=== PATIENT | male | born 1960 | race Caucasian/White ===

== ENCOUNTER 2019-12-08 10:27 | Inpatient (IN) ==
[2019-12-08] MEDS ORDERED: 0.9 % SODIUM CHLORIDE 1,000 ML IV ONE ×2 (10:35→11:24)
[2019-12-08] MEDS ORDERED: ONDANSETRON 4 MG/2 ML VIAL IV ONE (10:35)
[2019-12-08 11:23] LABS: Basophils # (Auto) 0.07 K/mcL (0.00-0.30); Basophils % (Auto) 0.5 % (0.0-2.0); Eosinophils # (Auto) 0.02 K/mcL (0.00-0.70); Eosinophils % (Auto) 0.1 % (0.0-7.0); Granulocytes % (Auto) 68.1 % (38.0-78.0); Hematocrit 46.2 % (40.1-51.0); Hemoglobin 16.3 g/dL (13.7-17.5); Lymphocytes # (Auto) 2.49 K/mcL (1.50-4.80); Lymphocytes % (Auto) 17.4 % (15.5-49.0); Mean Cell Volume 87.5 fL (80.0-100.0); Mean Corpuscular HGB Conc 35.3 g/dL (31.0-36.0); Mean Platelet Volume 9.6 fL (7.4-10.4); Monocytes # (Auto) 1.98 K/mcL (0.10-0.90); Monocytes % (Auto) 13.9 % (1.0-12.0); Platelet Count 362 K/mcL (140-440); RBC 5.28 M/mcL (4.63-6.08); Red Cell Distribution Width 13.3 % (11.5-14.5); WBC 14.3 K/mcL (4.50-11.00)
[2019-12-08] MEDS ORDERED: DILTIAZEM 25 MG/5 ML VIAL IV ONE (11:35)
--- NOTE | 2019-12-08 11:36 | Emergency Department Note ---
Alcohol HPI - General Chief Complaint: Alcohol Stated Complaint: Nausea, alcohol Time Seen by Provider: 12/08/19 10:35 Source: patient Mode of arrival: wheelchair Limitations: no limitations - History of Present Illness HPI Narrative: This patient has had nausea vomiting for 2 weeks. He is a heavy drinker drinking 1/5 of alcohol a day. He says he has been sober in the past but started drinking again last July. He is interested in getting off alcohol again. He does have various aches and pains including shoulders chest and abdomen which he has had for several weeks. Some of the pain he says is had for couple of months. He is found to be in atrial fibrillation on his EKG and he says he is not aware of having that in the past. Last drink was last evening. - Related Data Home Medications Medication Instructions Recorded Confirmed Fenofibrate Nanocrystallized 145 mg PO QDAY 05/03/16 11/02/19 [Tricor] Folic Acid 1 mg PO QDAY 05/03/16 11/02/19 Insulin Glargine, Human [Lantus] 50 unit SQ BID 05/03/16 11/02/19 Simvastatin [Zocor] 10 mg PO HS 05/03/16 11/02/19 Tolterodine Tartrate [Detrol LA] 4 mg PO HS 05/03/16 11/02/19 metFORMIN [Glucophage] 1,000 mg PO BIDCC 05/03/16 11/02/19 Ipratropium 0.03% Nasal [place] 2 spray DAVE TIDP PRN 08/08/16 11/02/19 [Atrovent 0.03% Nasal [place]] Lisinopril [Zestril] 10 mg PO DAILY 08/08/16 11/02/19 Tamsulosin [Flomax] 0.4 mg PO DAILY 08/08/16 11/02/19 insulin aspart U-100 100 unit/mL 20 unit SUB-Q BID PRN ml 10/06/19 11/02/19 subcutaneous solution sertraline 25 mg tablet 25 mg PO QAM tab 10/06/19 11/02/19 sildenafil 100 mg tablet 100 mg PO ONCE tab 10/06/19 11/02/19 simvastatin 40 mg tablet 40 mg PO QDAY tab 10/06/19 11/02/19 canagliflozin 100 mg tablet 100 mg PO DAILY 10/07/19 11/02/19 Previous Rx's Medication Instructions Recorded levothyroxine 50 mcg tablet 50 mcg PO DAILY #30 tab 09/12/19 clobetasol 0.05 % topical ointment See Rx Instructions TOPICAL BID 09/15/19 #15 g blood sugar diagnostic See Rx Instructions .ROUTE 09/16/19 .MEDSUPPLY #100 each ergocalciferol (vitamin D2) 1,250 50,000 unit PO QWEEK #4 cap 09/29/19 mcg (50,000 unit) capsule apremilast 30 mg tablet 30 mg PO BID #60 tab 10/28/19 hydrocodone 10 mg-acetaminophen 1 tab PO Q6H PRN #120 tab 11/02/19 325 mg tablet lorazepam 1 mg tablet 1 mg PO .COMPLEX #56 tab 11/02/19 omeprazole 40 mg capsule,delayed 40 mg PO BID PRN #60 cap 11/02/19 release Allergies Allergy/AdvReac Type Severity Reaction Status Date / Time Bee Pollen Allergy Mild Swelling Verified 12/08/19 10:27 Loperamide [From Imodium A-D] AdvReac Mild Hives Verified 12/08/19 10:27 Review of Systems All systems ED: reviewed and negative except as stated. Past Medical History - Past Medical History PMF Narrative: Medical History (Last Reviewed 11/05/19 @ 17:48 by Pete Green MD) MRSA (methicillin resistant staph aureus) culture positive (Chronic) ETOH abuse (Chronic) GERD (gastroesophageal reflux disease) (Chronic) Cellulitis due to methicillin-resistant Staphylococcus aureus (MRSA) (Chronic) Hx of gastric ulcer (Chronic) Erectile dysfunction (Chronic) Hyperlipidemia (Chronic) Rectal bleeding (Chronic) Hypothyroidism (Chronic) Back pain (Chronic) Infection resistant to penicillin (Chronic) Fatigue (Chronic) Ganglion, unspecified (Chronic) Sleep apnea (Chronic) Disorders of diaphragm (Chronic) Hyponatremia (Chronic) Microalbuminuria (Chronic) Obesity (Chronic) Hypertriglyceridemia (Chronic) Vitamin D deficiency (Chronic) Barretts esophagus (Chronic) Diabetes mellitus type 2, uncontrolled (Chronic) Psoriasis (Chronic) Cellulitis of groin, left (Chronic) Encounter for long-term use of opiate analgesic (Chronic) Diabetes mellitus due to underlying condition with hyperglycemia (Chronic) Alcohol dependence with withdrawal, uncomplicated (Chronic) Hypertension (Chronic) Psoriatic arthritis (Chronic) Impingement syndrome of left shoulder (Chronic) Disorder of lung (Chronic) Encounter for long-term (current) use of insulin (Chronic) Abscess of flank (Chronic) Contusion of scalp, initial encounter (Chronic) Abrasion of scalp, initial encounter (Chronic) Cervical disc disease (Chronic) History of head injury (Chronic) Carpal tunnel syndrome of left wrist (Chronic) Past Surgical History (Last Reviewed 11/05/19 @ 17:48 by Pete Green MD) History of shoulder surgery (Chronic ~2019) History of esophagogastroduodenoscopy (EGD) (Chronic 06/25/17) History of colonoscopy (Chronic) Family History (Last Reviewed 11/05/19 @ 17:48 by Pete Green MD) Mother Aneurysm - Social History smoking status: Never smoker Physical Exam Limitations: no limitations General appearance: alert Head: atraumatic Eye: Present: normal appearance ENT: Present: normal exam Neck: Present: normal inspection Chest: Present: normal inspection Respiratory: Present: normal lung sounds bilaterally Cardiovascular: Present: regular rate, normal rhythm, normal heart sounds Abdominal: Present: soft, tenderness. Absent: distention Abdominal tenderness: Present: diffuse, mild Neurological: Present: alert Psychiatric: Present: normal affect Skin: Present: warm, dry Course Vital Signs Temperature 97.4 F 12/08/19 10:28 Pulse Rate 99 H 12/08/19 10:28 Respiratory Rate 18 12/08/19 10:28 Blood Pressure 115/76 12/08/19 10:28 Pulse Oximetry (%) 96 12/08/19 10:28 Temperature 97.4 F 12/08/19 10:28 Pulse Rate 99 H 12/08/19 14:16 Respiratory Rate 21 12/08/19 14:16 Blood Pressure 94/50 12/08/19 14:02 Pulse Oximetry (%) 94 12/08/19 14:16 Alcohol - MDM Narrative Medical decision making narrative: This patient has atrial fib RVR with initial heart rate 145 to come down about 100 with diltiazem. He has no alcohol in his system at this time and is feeling a little shaky and has had withdrawal symptoms in the past. He is interested in getting off alcohol again. He will be admitted to the hospital by Dr. Tena. - Lab Data Lab results reviewed: Yes I reviewed the patient's lab results. Result diagrams: 12/08/19 10:46 12/08/19 10:46 Lab Results 12/08/19 12/08/19 12/08/19 Range/Units 10:46 10:46 10:46 WBC 14.3 H (4.50-11.00) K/mcL RBC 5.28 (4.63-6.08) M/mcL Hgb 16.3 (13.7-17.5) g/dL Hct 46.2 (40.1-51.0) % MCV 87.5 (80.0-100.0) fL MCH 30.9 (26.0-34.0) pg MCHC 35.3 (31.0-36.0) g/dL RDW 13.3 (11.5-14.5) % Plt Count 362 (140-440) K/mcL MPV 9.6 (7.4-10.4) fL Gran % 68.1 (38.0-78.0) % Lymph % (Auto) 17.4 (15.5-49.0) % [place] % (Auto) 13.9 H (1.0-12.0) % Eos % (Auto) 0.1 (0.0-7.0) % Baso % (Auto) 0.5 (0.0-2.0) % Gran # 9.73 H (1.80-8.00) K/mcL Lymph # (Auto) 2.49 (1.50-4.80) K/mcL [place] # (Auto) 1.98 H (0.10-0.90) K/mcL Eos # (Auto) 0.02 (0.00-0.70) K/mcL Baso # (Auto) 0.07 (0.00-0.30) K/mcL Sodium 129 L (133-145) mmol/L Potassium 2.7 L* (3.3-5.1) mmol/L Chloride 79 L (96-108) mmol/L Carbon Dioxide 23 (22-30) mmol/L Anion Gap 27.0 H (8-16) BUN 11 (8-23) mg/dl Creatinine 0.9 (0.7-1.2) mg/dl GFR Calculation 92 Glucose 221 H (70-105) mg/dL Calcium 8.6 (8.6-10.4) mg/dl Total Bilirubin 1.6 H (0.0-1.0) mg/dL AST 36 (0-37) U/l ALT 20 (0-40) U/l Alkaline Phosphatase 101 (39-117) U/L Troponin T (0-0.03) ng/ml Total Protein 7.1 (5.9-8.4) gm/dL Albumin 4.4 (3.2-5.2) gm/dL Globulin 2.7 (2.2-3.7) gm/dL Albumin/Globulin Ratio 1.6 (1.0-2.3) Lipase 75 H (7-60) U/L Urine Color Urine Appearance Urine pH (5.0-9.0) Ur Specific [place] (1.000-1.035) Urine Protein (NEG) mg/dL Urine Glucose (UA) (NEG) mg/dL Urine Ketones (NEG) mg/dL Urine Occult Blood (<0.03) mg/dL Urine Nitrate (NEG) Urine Bilirubin (NEG) mg/dL Urine Urobilinogen (NEG) mg/dL Ur Leukocyte Esterase (NEG) /uL Urine RBC (0-1) /hpf Urine WBC (0-4) /hpf Ur Squamous Epith Cells (0-4) /hpf Ur Transition Epith Cell (0-2) /hpf Urine Bacteria (0) /hpf Ur Culture Indicated? Ethyl Alcohol < 0.010 (<0.010) gm/dl 12/08/19 12/08/19 Range/Units 10:46 12:33 WBC (4.50-11.00) K/mcL RBC (4.63-6.08) M/mcL Hgb (13.7-17.5) g/dL Hct (40.1-51.0) % MCV (80.0-100.0) fL MCH (26.0-34.0) pg MCHC (31.0-36.0) g/dL RDW (11.5-14.5) % Plt Count (140-440) K/mcL MPV (7.4-10.4) fL Gran % (38.0-78.0) % Lymph % (Auto) (15.5-49.0) % [place] % (Auto) (1.0-12.0) % Eos % (Auto) (0.0-7.0) % Baso % (Auto) (0.0-2.0) % Gran # (1.80-8.00) K/mcL Lymph # (Auto) (1.50-4.80) K/mcL [place] # (Auto) (0.10-0.90) K/mcL Eos # (Auto) (0.00-0.70) K/mcL Baso # (Auto) (0.00-0.30) K/mcL Sodium (133-145) mmol/L Potassium (3.3-5.1) mmol/L Chloride (96-108) mmol/L Carbon Dioxide (22-30) mmol/L Anion Gap (8-16) BUN (8-23) mg/dl Creatinine (0.7-1.2) mg/dl GFR Calculation Glucose (70-105) mg/dL Calcium (8.6-10.4) mg/dl Total Bilirubin (0.0-1.0) mg/dL AST (0-37) U/l ALT (0-40) U/l Alkaline Phosphatase (39-117) U/L Troponin T < 0.01 (0-0.03) ng/ml Total Protein (5.9-8.4) gm/dL Albumin (3.2-5.2) gm/dL Globulin (2.2-3.7) gm/dL Albumin/Globulin Ratio (1.0-2.3) Lipase (7-60) U/L Urine Color Yellow Urine Appearance Clear Urine pH 6.0 (5.0-9.0) Ur Specific [place] 1.029 (1.000-1.035) Urine Protein Neg (NEG) mg/dL Urine Glucose (UA) >=500 A (NEG) mg/dL Urine Ketones 20 A (NEG) mg/dL Urine Occult Blood Neg (<0.03) mg/dL Urine Nitrate Neg (NEG) Urine Bilirubin Neg (NEG) mg/dL Urine Urobilinogen Neg (NEG) mg/dL Ur Leukocyte Esterase Neg (NEG) /uL Urine RBC 1 (0-1) /hpf Urine WBC 0 (0-4) /hpf Ur Squamous Epith Cells 0 (0-4) /hpf Ur Transition Epith Cell < 1 (0-2) /hpf Urine Bacteria 0 (0) /hpf Ur Culture Indicated? No Ethyl Alcohol (<0.010) gm/dl Disposition Pt seen by [facility]/PA only: No Clinical Impression: Atrial fibrillation with RVR, Alcohol withdrawal syndrome Disposition: Xfer As Inpt ([facility]) Condition: Good Referrals: Pete Green MD [Primary Care Provider] - Time of Disposition: 14:43
[2019-12-08 11:40] LABS: Alcohol, Blood < 10.0 mg/dL (<10); Alcohol,Blood < 0.010 gm/dl (<0.010)
[2019-12-08] MEDS ORDERED: DILTIAZEM 125 MG in DEXTROSE 5% IN WATER 100 ML IV SCH (11:45)
[2019-12-08 11:46] LABS: ALT/SGPT 20 U/l (0-40); AST/SGOT 36 U/l (0-37); Albumin 4.4 gm/dL (3.2-5.2); Albumin/Globulin Ratio 1.6 (1.0-2.3); Alkaline Phosphatase 101 U/L (39-117); Bilirubin,Total 1.6 mg/dL (0.0-1.0); Blood Urea Nitrogen 11 mg/dl (8-23); Calcium 8.6 mg/dl (8.6-10.4); Carbon Dioxide 23 mmol/L (22-30); Globulin 2.7 gm/dL (2.2-3.7); Glomerular Filtration Rate 92; Glucose 221 mg/dL (70-105)
[2019-12-08 11:53] LABS: Chloride 79 mmol/L (96-108)
[2019-12-08] MEDS ORDERED: POTASSIUM CHLORIDE 40 MEQ in DEXTROSE 5% IN WATER 500 ML IV ONE (11:54)
[2019-12-08] MEDS ORDERED: METOCLOPRAMIDE 10 MG/2 ML VIAL IV ONE (12:32)
[2019-12-08 13:12] LABS: Appearance,Urine CLEAR; Bacteria,Urine 0 /hpf (0); Bilirubin,Urine NEG (NEG); Color,Urine YELLOW; Culture Indicated,Urine NO; Glucose,Urine (UA) >=500 mg/dL (NEG); Ketones,Urine 20 mg/dL (NEG); Leukocyte Esterase,Urine NEG /uL (NEG); Nitrate,Urine NEG (NEG); Protein,Urine NEG (NEG); Specific Gravity,Urine 1.029 (1.000-1.035); Urine Blood NEG mg/dL (<0.03); Urine RBC 1 /hpf (0-1); Urine Squamous Epithelial Cell 0 /hpf (0-4); Urine Transitional Epi Cells < 1 /hpf (0-2); Urine WBC 0 /hpf (0-4); Urobilinogen,Urine NEG (NEG)
[2019-12-08] MEDS ORDERED: LORazepam 2 MG/ML VIAL IV ONE (13:33)
[2019-12-08] MEDS ORDERED: 0.9 % SODIUM CHLORIDE 1,000 ML IV SCH ×2 (14:30→17:05)
--- NOTE | 2019-12-08 15:01 | Internal Med History&Physical ---
Medical - H&P: [facility] Patient information: Note initiated : 12/08/19 at 2:48 pm Service Date, if different from initiated Date: [] Patient: Noah Sinclair a 59 y/o M admitted on for Nausea, Alcohol. Chief Complaint: [] Chief complaint: Chest palpitations/pounding along with nausea History of present illness: Mr. Sinclair is a 59 year old M with a known history of severe alcohol use disorder/who underwent alcohol rehab in the past but has relapsed since July. He presents to the ER with increasing weakness, nausea vomiting for the last 10 days. He has noticed increasing chest pounding palpitation over the last 3 days. He consumed 3 half-gallon and 1/5 of hard alcohol in the last 3 days. However due to profound nausea and symptoms he presents to the ER Initial work-up was consistent with atrial fibrillation with RVR. He was started on diltiazem drip. Potassium 2.7 was started on replacement. Received 3 L of crystalloids and subsequently hospitalist service was consulted. At the time evaluation patient is very anxious fidgety tachycardic. Denies chest pain but endorses shortness of breath and chest palpitations. Endorses nausea. Denies recent fever chills or changes in medications. He lives with his grandson at home. Review of systems 10 point review system was performed and is negative except for ones cussed above Medical - H&P: PM Medical history: MRSA (methicillin resistant staph aureus) culture positive (Chronic) multiple chest wounds - he did use protocol for clearing and had 2 clean cultures 09/2008 ETOH abuse (Chronic) GERD (gastroesophageal reflux disease) (Chronic) Cellulitis due to methicillin-resistant Staphylococcus aureus (MRSA) (Chronic) Hx of gastric ulcer (Chronic) Erectile dysfunction (Chronic) Hyperlipidemia (Chronic) Rectal bleeding (Chronic) Hypothyroidism (Chronic) Back pain (Chronic) Infection resistant to penicillin (Chronic) Fatigue (Chronic) Ganglion, unspecified (Chronic) Sleep apnea (Chronic) ? of Disorders of diaphragm (Chronic) Hyponatremia (Chronic) Microalbuminuria (Chronic) Obesity (Chronic) Hypertriglyceridemia (Chronic) Vitamin D deficiency (Chronic) Barretts esophagus (Chronic) Diabetes mellitus type 2, uncontrolled (Chronic) Psoriasis (Chronic) Cellulitis of groin, left (Chronic) Encounter for long-term use of opiate analgesic (Chronic) Diabetes mellitus due to underlying condition with hyperglycemia (Chronic) Alcohol dependence with withdrawal, uncomplicated (Chronic) Hypertension (Chronic) Psoriatic arthritis (Chronic) Impingement syndrome of left shoulder (Chronic) Disorder of lung (Chronic) Encounter for long-term (current) use of insulin (Chronic) Abscess of flank (Chronic) Contusion of scalp, initial encounter (Chronic) Abrasion of scalp, initial encounter (Chronic) Cervical disc disease (Chronic) History of head injury (Chronic) Carpal tunnel syndrome of left wrist (Chronic) Surgical History History of shoulder surgery (Chronic ~2018) left -Dr Roa History of esophagogastroduodenoscopy (EGD) (Chronic 06/25/17) History of colonoscopy (Chronic) 2005 and 08/08/2016 Family History Mother Aneurysm Social History household members: significant other marital status: life partner occupational status: employed occupation: [employer] other: Poor compliance, has a 9 year old grandson smoking status: Never smoker alcohol intake frequency: former alcohol drinker Medical - H&P: Meds Home Medications Medication Instructions Recorded Confirmed Type Fenofibrate Nanocrystallized 145 mg PO QDAY 05/03/16 12/08/19 History [Tricor] Folic Acid 1 mg PO QDAY 05/03/16 12/08/19 History Insulin Glargine, Human [Lantus] 50 unit SQ BID 05/03/16 12/08/19 History Simvastatin [Zocor] 10 mg PO HS 05/03/16 12/08/19 History Tolterodine Tartrate [Detrol LA] 4 mg PO HS 05/03/16 12/08/19 History metFORMIN [Glucophage] 1,000 mg PO BIDCC 05/03/16 12/08/19 History Ipratropium 0.03% Nasal [place] 2 spray DAVE TIDP PRN 08/08/16 12/08/19 History [Atrovent 0.03% Nasal [place]] Lisinopril [Zestril] 10 mg PO DAILY 08/08/16 12/08/19 History Tamsulosin [Flomax] 0.4 mg PO DAILY 08/08/16 12/08/19 History levothyroxine 50 mcg tablet 50 mcg PO DAILY #30 tab 09/12/19 12/08/19 Rx clobetasol 0.05 % topical ointment See Rx Instructions TOPICAL BID 09/15/19 12/08/19 Rx #15 g blood sugar diagnostic See Rx Instructions .ROUTE 09/16/19 12/08/19 Rx .MEDSUPPLY #100 each ergocalciferol (vitamin D2) 1,250 50,000 unit PO QWEEK #4 cap 09/29/19 12/08/19 Rx mcg (50,000 unit) capsule insulin aspart U-100 100 unit/mL 20 unit SUB-Q BID PRN ml 10/06/19 12/08/19 History subcutaneous solution sertraline 25 mg tablet 25 mg PO QAM tab 10/06/19 12/08/19 History sildenafil 100 mg tablet 100 mg PO ONCE tab 10/06/19 12/08/19 History simvastatin 40 mg tablet 40 mg PO QDAY tab 10/06/19 12/08/19 History canagliflozin 100 mg tablet 100 mg PO DAILY 10/07/19 12/08/19 History apremilast 30 mg tablet 30 mg PO BID #60 tab 10/28/19 12/08/19 Rx hydrocodone 10 mg-acetaminophen 1 tab PO Q6H PRN #120 tab 11/02/19 12/08/19 Rx 325 mg tablet lorazepam 1 mg tablet 1 mg PO .COMPLEX #56 tab 11/02/19 12/08/19 Rx omeprazole 40 mg capsule,delayed 40 mg PO BID PRN #60 cap 11/02/19 12/08/19 Rx release Allergies Allergy/AdvReac Type Severity Reaction Status Date / Time Bee Pollen Allergy Mild Swelling Verified 12/08/19 10:27 Loperamide [From Imodium A-D] AdvReac Mild Hives Verified 12/08/19 10:27 Medical - H&P: Exam - Constitutional Vitals: Temp Pulse Resp BP Pulse Ox 97.4 F 99 H 21 94/50 94 12/08/19 10:28 12/08/19 14:16 12/08/19 14:16 12/08/19 14:02 12/08/19 14:16 General appearance: moderate distress (Anxious) Exam: Head normocephalic Alert and oriented but anxious and fidgety Eye movement symmetrical with lateral nystagmus Oral cavity dry No ear nose discharge S1-S2 regular rhythm tachycardia murmur ESM grade 1 Diminished breath sounds bases Abdomen soft nontender nondistended Lower extremity no cyanosis clubbing no joint swelling Skin no suspicious lesion Psych alert cooperative but anxious and fidgety Neuro nonfocal Medical - H&P: Reslt - Labs CBC & Chem 7: 12/08/19 10:46 12/08/19 10:46 Labs: Short CBC 12/08/19 Range/Units 10:46 WBC 14.3 H (4.50-11.00) K/mcL Hgb 16.3 (13.7-17.5) g/dL Hct 46.2 (40.1-51.0) % Plt Count 362 (140-440) K/mcL BMP 12/08/19 10:46 Sodium 129 L Potassium 2.7 L* Chloride 79 L Carbon Dioxide 23 BUN 11 Creatinine 0.9 Glucose 221 H Calcium 8.6 Cardiac Enzymes 12/08/19 Range/Units 10:46 Troponin T < 0.01 (0-0.03) ng/ml Liver Function 12/08/19 Range/Units 10:46 Total Bilirubin 1.6 H (0.0-1.0) mg/dL AST 36 (0-37) U/l ALT 20 (0-40) U/l Alkaline Phosphatase 101 (39-117) U/L Albumin 4.4 (3.2-5.2) gm/dL Urine 12/08/19 Range/Units 12:33 Urine Color Yellow Urine Appearance Clear Urine pH 6.0 (5.0-9.0) Ur Specific [place] 1.029 (1.000-1.035) Urine Protein Neg (NEG) mg/dL Urine Glucose (UA) >=500 A (NEG) mg/dL Medical - H&P: A/P (1) Atrial fibrillation with RVR Current visit: Yes Status: Acute * Afib RVR-likely secondary to excessive alcohol consumption . Continue rate control measures with CCB/beta blockers. Echocardiogram. Telemetry monitoring. * Severe alcohol use disorder, high likelihood of DTs/psychomotor agitation in light of prior episodes requiring hospitalization for detox [place]. Continue benzodiazepine//multivitamins * Hypokalemia-on aggressive IV and oral replacement. 120 mEq replacement today. Repeat BMP * Volume depletion secondary to vomiting-continue * Elevated bilirubin likely secondary to alcoholic hepatitis. Abdominal ultrasound to rule out biliary pathology * Hypovolemic hyponatremia secondary to alcoholism/nausea vomiting electrolyte loss. Continue monitoring. Crystalloid replacement * History of DM type II continue basal panel insulin/CC diet * BPH continue tamsulosin * Hyperlipidemia continue statin * Anxiety disorder continue sertraline * History of hypertension restart CARMEN inhibitor once systolics over 140 * Hypothyroidism continue thyroxine * Full code * Prophylaxis heparin Plan * Inpatient admission * Telemetry monitoring * Repeat BMP * Rate control measures/echocardiogram * Crystalloid replacement * Electrolyte replacement * Pre-existing medical condition management on home meds
[2019-12-08] MEDS ORDERED: ONDANSETRON 4 MG ODT TABLET SL PRN (17:05)
[2019-12-08] MEDS ORDERED: METOPROLOL TARTRATE 5 MG/5 ML VIAL IV PRN (17:05)
[2019-12-08] MEDS ORDERED: DEXTROSE 31 GM ORAL.SUSP PO PRN (17:05)
[2019-12-08] MEDS ORDERED: DEXTROSE 50% 50 ML VIAL IV PRN (17:05)
[2019-12-08] MEDS ORDERED: BISACODYL 10 MG SUPP.RECT PR PRN (17:05)
[2019-12-08] MEDS ORDERED: ACETAMINOPHEN 325 MG TABLET PO PRN (17:05)
[2019-12-08] MEDS ORDERED: POTASSIUM CHLORIDE 40 MEQ in DEXTROSE 5% IN WATER 500 ML IV PRN (17:05)
[2019-12-08] MEDS ORDERED: ONDANSETRON 4 MG/2 ML VIAL IV PRN (17:05)
[2019-12-08] MEDS ORDERED: POLYETHYLENE GLYCOL 3350 17 GM PACKET PO PRN (17:05)
[2019-12-08] MEDS ORDERED: DILTIAZEM 125 MG in DEXTROSE 5% IN WATER 100 ML IV PRN (17:15)
[2019-12-08] MEDS ORDERED: LORazepam 2 MG/ML VIAL ONE (18:36)
[2019-12-08] MEDS: LORazepam 2 MG/ML VIAL IV PRN (18:37)
[2019-12-08] MEDS: INSULIN LISPRO 1 UNIT/0.01 ML UNIT SQ SCH ×2 (19:13→21:57)
--- NOTE | 2019-12-08 19:19 | Ultrasound Report ---
CLINICAL INFORMATION: Abnormal liver function tests TECHNIQUE: Grayscale and color flow Doppler spectral imaging COMPARISON: None. FINDINGS: Negative gallbladder. No cholelithiasis or gallbladder wall thickening or pericholecystic fluid. No dilated bile ducts. Common bile duct measures 3 mm. Liver measures 18 cm. The liver is enlarged. The hepatic parenchyma is sonographically dense consistent with hepatic steatosis. There is no focal mass. Liver contour is smooth. There is no ascites. Normal hepatopedal portal venous flow Visualized portions of the pancreas are negative. Right kidney measures 12.5 x 7.1 x 5.3 cm. No solid or cystic mass. No hydronephrosis. IMPRESSION: 1. Negative gallbladder 2. Enlarged liver. Liver is sonographically dense consistent with hepatic steatosis. No focal abnormality Interpreted and Authenticated by: Deven Martinez 12/08/19
[2019-12-08] MEDS: HEPARIN 5,000 UNIT/ML VIAL SQ SCH (21:54)
[2019-12-08] MEDS: GABAPENTIN 100 MG CAPSULE PO SCH (21:55)
[2019-12-08] MEDS: DOCUSATE SODIUM 100 MG CAPSULE PO SCH (21:56)
[2019-12-08] MEDS: SENNOSIDES/DOCUSATE SODIUM 1 TAB TABLET PO SCH (21:57)
[2019-12-08] MEDS: 0.9 % SODIUM CHLORIDE 10 ML SYRINGE IV SCH (21:57)
[2019-12-09] MEDS: GABAPENTIN 100 MG CAPSULE PO SCH ×3 (05:36→21:41)
[2019-12-09] MEDS: 0.9 % SODIUM CHLORIDE 10 ML SYRINGE IV SCH ×3 (05:37→21:43)
[2019-12-09] MEDS: LORazepam 2 MG/ML VIAL IV PRN ×4 (07:11→22:53)
[2019-12-09] MEDS: PANTOPRAZOLE 40 MG TABLET PO SCH (07:11)
[2019-12-09 08:09] LABS: Hematocrit 39.9 % (40.1-51.0); Hemoglobin 13.5 g/dL (13.7-17.5); Mean Cell Volume 91.1 fL (80.0-100.0); Mean Corpuscular HGB Conc 33.8 g/dL (31.0-36.0); Mean Platelet Volume 9.5 fL (7.4-10.4); Platelet Count 215 K/mcL (140-440); RBC 4.38 M/mcL (4.63-6.08); WBC 5.7 K/mcL (4.50-11.00)
[2019-12-09 08:16] LABS: ALT/SGPT 14 U/l (0-40); AST/SGOT 23 U/l (0-37); Albumin 3.8 gm/dL (3.2-5.2); Alkaline Phosphatase 73 U/L (39-117); Bilirubin,Direct 0.3 mg/dL (0.0-0.3); Bilirubin,Total 1.1 mg/dL (0.0-1.0); Blood Urea Nitrogen 9 mg/dl (8-23); Calcium 7.6 mg/dl (8.6-10.4); Carbon Dioxide 26 mmol/L (22-30); Globulin 1.9 gm/dL (2.2-3.7); Glomerular Filtration Rate 102; Glucose 131 mg/dL (70-105); Lactate Dehydrogenase 185 U/L (94-250); Phosphorous 3.4 mg/dL (2.7-4.5); Triglycerides 258 mg/dl (<150); Uric Acid 2.1 mg/dL (2.5-8.0)
[2019-12-09 08:38] LABS: Eosinophils % (Manual) 2 % (0-7); Lymphocytes % 33 % (15-49); Monocytes % (Manual) 14 % (1-12); Platelet Estimate NORMAL (NORMAL); RBC Morphology NORMAL (NORMAL); Reactive Lymphocytes 5 % (0-2); Segmented Neutrophils % 46 % (38-78)
[2019-12-09 08:40] LABS: Chloride 91 mmol/L (96-108)
[2019-12-09] MEDS ORDERED: INSULIN LISPRO 1 UNIT/0.01 ML UNIT SQ PRN (09:03)
[2019-12-09] MEDS ORDERED: OMEPRAZOLE 20 MG CAPSULE PO PRN (09:03)
[2019-12-09] MEDS ORDERED: IPRATROPIUM 0.03% NASAL SPRAY BOTTLE 30ML NAS PRN (09:03)
[2019-12-09] MEDS ORDERED: NON FORMULARY MEDICATION 1 DOSE MISCELL (Sildenafil Citrate [Viagra] 100 MG) PO SCH (09:15)
[2019-12-09] MEDS: INSULIN LISPRO 1 UNIT/0.01 ML UNIT SQ SCH ×4 (10:01→21:42)
[2019-12-09] MEDS: DOCUSATE SODIUM 100 MG CAPSULE PO SCH ×2 (10:02→21:41)
[2019-12-09] MEDS: HEPARIN 5,000 UNIT/ML VIAL SQ SCH ×2 (10:02→21:41)
[2019-12-09] MEDS: HYDROcodone/APAP 10/325MG TABLET PO PRN ×2 (10:02→17:04)
[2019-12-09] MEDS: POTASSIUM CHLORIDE 20 MEQ PACKET PO PRN ×2 (10:03→17:04)
[2019-12-09] MEDS: sitaGLIPtin 100 MG TABLET PO SCH (10:03)
[2019-12-09] MEDS: INSULIN GLARGINE, HUMAN 1 UNIT/0.01 ML SQ SCH (10:03)
[2019-12-09] MEDS: MULTIVIT,THER IRON,CA,FA & MIN 1 TABLET PO SCH (10:03)
[2019-12-09] MEDS: POTASSIUM CHLORIDE 20 MEQ/15 ML ML PO SCH ×3 (12:22→17:34)
[2019-12-09] MEDS: SENNOSIDES/DOCUSATE SODIUM 1 TAB TABLET PO SCH (21:36)
[2019-12-09] MEDS: TOLTERODINE 2 MG CAP.XL.24H PO SCH (21:41)
[2019-12-09] MEDS: MELATONIN 3 MG TABLET PO PRN (21:41)
--- NOTE | 2019-12-09 23:07 | Internal Med Progress Note ---
Medical - PN: Subj Patient information: Note initiated : 12/09/19 at 11:05 pm Service Date, if different from initiated Date: [] Patient: Noah Sinclair 59 y/o M admitted on 12/08/19 for Nausea, Alcohol. Chief Complaint: [] Interval history: Mr. Sinclair is a 59 year old M with a known history of severe alcohol use disorder/who underwent alcohol rehab in the past but has relapsed since July. He presents to the ER with increasing weakness, nausea vomiting for the last 10 days. He has noticed increasing chest pounding palpitation over the last 3 days. He consumed 3 half-gallon and 1/5 of hard alcohol in the last 3 days. However due to profound nausea and symptoms he presents to the ER Initial work-up was consistent with atrial fibrillation with RVR. He was started on diltiazem drip. Potassium 2.7 was started on replacement. Received 3 L of crystalloids and subsequently hospitalist service was consulted. At the time evaluation patient is very anxious fidgety tachycardic. Denies chest pain but endorses shortness of breath and chest palpitations. Endorses nausea. Denies recent fever chills or changes in medications. He lives with his grandson at home. 12/10-patient shows severe alcohol withdrawal symptoms currently on CIWA protocol scores around 9. Continue supportive management. Improved nausea vomiting. Improved abdominal pain. A. fib converted to sinus. No other concerns per staff. Afebrile. Potassium improved to 2.9. 120 meq potassium replacement today. Sodium at 135. Bilirubin down to 1.1. Ultrasound liver hepatic steatosis. - Constitutional Vitals: Vital Signs Temp Pulse Resp BP Pulse Ox 97.7 F 97 H 20 116/71 96 12/09/19 16:01 12/09/19 16:01 12/09/19 12:00 12/09/19 21:01 12/09/19 16:01 Period Temp Pulse Resp BP Sys/Valenzuela Pulse Ox Last 24 Hr 97.6 F-98.1 F 88-116 18-27 80-160/39-111 87-98 Intake and Output 12/09/19 12/09/19 12/10/19 13:59 21:59 05:59 Intake Total 400 Output Total 375 550 Balance -375 -150 Weight 198 lb 6.4 oz Patient Weight 12/10/19 05:59 Weight 198 lb 6.4 oz Intake & Output: Intake & Output 12/09/19 12/09/19 12/10/19 13:59 21:59 05:59 Intake Total 400 Output Total 375 550 Balance -375 -150 Weight 198 lb 6.4 oz Intake: Oral 400 Output: Void Amount 375 550 Other: Meal Lunch Lunch Percent of Meal Consumed 100% 100% Feeding Ability Independent Urine Appearance Clear Clear Urine Color Dark Yellow Bright Yellow Urine Odor Strong General appearance: no acute distress Exam: Physically anxious. Nonlabored breathing Sinus rhythm telemetry Tachycardic Medical - PN: Obj Da - Labs CBC & Chem 7: 12/09/19 05:45 12/09/19 05:45 Labs: Abnormal Lab Results 12/09/19 12/09/19 12/08/19 05:45 05:45 12:33 WBC RBC 4.38 L Hgb 13.5 L Hct 39.9 L [place] % (Auto) Gran # [place] # (Auto) Monocytes % (Manual) 14 H Reactive Lymphocytes 5 H Sodium Potassium 2.9 L* Chloride 91 L Anion Gap 18.0 H Glucose 131 H Uric Acid 2.1 L Calcium 7.6 L Magnesium 1.1 L Total Bilirubin 1.1 H GGT 276 H Total Protein 5.7 L Globulin 1.9 L Triglycerides 258 H Lipase Urine Glucose (UA) >=500 A Urine Ketones 20 A 12/08/19 12/08/19 10:46 10:46 WBC 14.3 H RBC Hgb Hct [place] % (Auto) 13.9 H Gran # 9.73 H [place] # (Auto) 1.98 H Monocytes % (Manual) Reactive Lymphocytes Sodium 129 L Potassium 2.7 L* Chloride 79 L Anion Gap 27.0 H Glucose 221 H Uric Acid Calcium Magnesium Total Bilirubin 1.6 H GGT Total Protein Globulin Triglycerides Lipase 75 H Urine Glucose (UA) Urine Ketones Meds: Medications Acetaminophen (Tylenol) 650 mg PO Q4-6HP PRN; Protocol PRN Reason: Per Pain Protocol/Fever > 101 Hydrocodone Bitart/Acetaminophen ([place] 10/325mg) 1 tab PO Q6HP PRN; Protocol PRN Reason: pain Last Admin: 12/09/19 17:04 Dose: 1 tab Documented by: Bisacodyl (Dulcolax) 10 mg ND Q2-3DAYS PRN PRN Reason: Constipation Dextrose (Dextrose 50%) 0 ml IV UD PRN PRN Reason: Hypoglycemia Diagnostic Test (Pha) (Accu-Chek) 1 each FS ACHS [facility] Last Admin: 12/09/19 21:42 Dose: 1 each Documented by: Docusate Sodium (Colace) 100 mg PO BID [facility] Last Admin: 12/09/19 21:41 Dose: 100 mg Documented by: Fenofibrate (Antara) 129 mg PO QDAY [facility] Folic Acid (Folic Acid) 1 mg PO DAILY [facility] Gabapentin (Neurontin) 200 mg PO Q8 [facility] Last Admin: 12/09/19 21:41 Dose: 200 mg Documented by: Glucose (Insta-Glucose) 15 gm PO PRN PRN PRN Reason: Hypoglycemia Heparin Sodium (Porcine) (Heparin) 5,000 unit SQ Q12 [facility] Last Admin: 12/09/19 21:41 Dose: 5,000 unit Documented by: Diltiazem HCl 125 mg/ Dextrose 125 mls @ 5 mls/hr IV Q12HP PRN; Protocol PRN Reason: Tachyarrhythmias Potassium Chloride 40 meq/ (Dextrose) 520 mls @ 130 mls/hr IV UD PRN PRN Reason: K+ = or < 3.5 Magnesium Sulfate (Magnesium Sulfate) 2 gm in 50 mls @ 50 mls/hr IV UD PRN PRN Reason: MG = or < 1.7 Insulin Glargine (Lantus) 50 unit SQ DAILY [facility] Last Admin: 12/09/19 10:03 Dose: 50 units Documented by: Insulin Human Lispro (Humalog) 0 unit SQ ACHS [facility]; Protocol Last Admin: 12/09/19 21:42 Dose: Not Given Documented by: Insulin Human Lispro (Humalog) 20 unit SQ BIDP PRN PRN Reason: blood sugar Ipratropium [place] (Atrovent 0.03% Nasal [place]) 2 spray DAVE TIDP PRN PRN Reason: Allergy Symptoms Iron Carb/Multivit/[place]/Folic Acid (Multivitamin W/Minerals) 1 tab PO DAILY [facility] Last Admin: 12/09/19 10:03 Dose: 1 tab Documented by: Levothyroxine Sodium (Synthroid) 50 mcg PO QAMAC [facility] Lisinopril (Zestril) 10 mg PO DAILY [facility] Lorazepam (Ativan) 2 mg IV Q1HP PRN; Protocol PRN Reason: ANXIETY/SEDATION Last Admin: 12/09/19 22:53 Dose: 1 mg Documented by: Melatonin (Melatonin 3mg Tablet) 3 mg PO HSP PRN PRN Reason: Insomnia Last Admin: 12/09/19 21:41 Dose: 3 mg Documented by: Metoprolol Tartrate (Lopressor) 5 mg IV Q5M PRN PRN Reason: Heart Rate > 140 bpm Omeprazole (Prilosec) 40 mg PO BIDP PRN PRN Reason: GERD Last Admin: 12/09/19 17:04 Dose: 40 mg Documented by: Ondansetron HCl (Zofran Odt) 4 mg SL Q4-6HP PRN; Protocol PRN Reason: Nausea And Vomiting Last Admin: 12/09/19 05:37 Dose: 4 mg Documented by: Ondansetron HCl (Zofran) 4 mg IV Q4-6HP PRN; Protocol PRN Reason: Nausea And Vomiting Pantoprazole Sodium (Protonix) 40 mg PO QAMAC [facility] Last Admin: 12/09/19 07:11 Dose: 40 mg Documented by: Apremilast [Otezla] (30 Mg Tab) 1 dose PO BID [facility] Last Admin: 12/09/19 21:43 Dose: Not Given Documented by: Canagliflozin [ (Invokana] 100 Mg Tab) 1 dose PO DAILY [facility] Pneumococcal Polyvalent Vaccine (Pneumovax 23) 0.5 ml IM .ONCE ONE Stop: 12/10/19 10:01 Polyethylene Glycol (Miralax) 17 gm PO DAILYP PRN PRN Reason: Constipation Potassium Chloride (Klor-Con) 40 meq PO DAILYP PRN PRN Reason: K+ < 3.5 Last Admin: 12/09/19 17:04 Dose: 40 meq Documented by: Senna/Docusate Sodium (Senna Plus Tablet) 1 tab PO HS [facility] Last Admin: 12/09/19 21:36 Dose: Not Given Documented by: Sertraline HCl (Zoloft) 25 mg PO QAM [facility] Simvastatin (Zocor) 40 mg PO QDAY [facility] Sitagliptin Phosphate (Januvia) 100 mg PO DAILY [facility] Last Admin: 12/09/19 10:03 Dose: 100 mg Documented by: Sodium Chloride (Saline Flush) 10 ml IV Q8 [facility] Last Admin: 12/09/19 21:43 Dose: 10 ml Documented by: Tamsulosin HCl (Flomax) 0.4 mg PO DAILY [facility] Tolterodine Tartrate (Detrol La) 4 mg PO HS [facility] Last Admin: 12/09/19 21:41 Dose: 4 mg Documented by: Medical - PN: A/P - Time Spent With Patient Total time spent is greater than 50% in coordination of care (as documented) at patient's floor/unit and/or counseling patient: 25 - 35 minutes (1) Atrial fibrillation with RVR Status: Acute Assessment and plan: * Severe alcohol use disorder, with active alcohol withdrawal. High risk DT. On [facility] benzodiazepine protocol. * Afib RVR-converted to sinus on diltiazem. Secondary to alcoholism. Echocardiogram unremarkable with normal EF * Hypokalemia-on aggressive IV and oral replacement. Additional 120 mEq replacement today. Repeat BMP * Volume depletion secondary to vomiting-resolved with antiemetics/crystalloids * Elevated bilirubin likely secondary to alcoholic hepatitis/steatosis. Abdominal ultrasound unremarkable for biliary pathology * Hypovolemic hyponatremia secondary to alcoholism/nausea vomiting electrolyte loss. Sodium improved to 135 * History of DM type II continue basal prandial insulin/CC diet * BPH continue tamsulosin * Hyperlipidemia continue statin * Anxiety disorder continue sertraline * History of hypertension -CARMEN inhibitor on hold * Hypothyroidism continue thyroxine * Full code * Prophylaxis heparin Plan * [facility] protocol * Seizure watch * Crystalloid replacement * Continue potassium replacement * Pre-existing medical condition management on home meds Current Visit: Yes Medical - PN: Qual - VTE Deep Vein Thrombosis/Pulmonary Embolism Present on Admission: No
[2019-12-10] MEDS: GABAPENTIN 100 MG CAPSULE PO SCH ×3 (05:40→21:38)
[2019-12-10] MEDS: 0.9 % SODIUM CHLORIDE 10 ML SYRINGE IV SCH ×3 (05:41→21:40)
[2019-12-10] MEDS: LORazepam 2 MG/ML VIAL IV PRN ×5 (05:46→21:40)
[2019-12-10 06:24] LABS: Hematocrit 38.2 % (40.1-51.0); Hemoglobin 12.6 g/dL (13.7-17.5); Mean Cell Volume 93.2 fL (80.0-100.0); Mean Platelet Volume 9.4 fL (7.4-10.4); Platelet Count 176 K/mcL (140-440); Red Cell Distribution Width 13.8 % (11.5-14.5); WBC 6.5 K/mcL (4.50-11.00)
[2019-12-10 06:51] LABS: ALT/SGPT 15 U/l (0-40); AST/SGOT 25 U/l (0-37); Albumin 3.5 gm/dL (3.2-5.2); Albumin/Globulin Ratio 1.8 (1.0-2.3); Alkaline Phosphatase 62 U/L (39-117); Bilirubin,Direct 0.2 mg/dL (0.0-0.3); Bilirubin,Total 0.9 mg/dL (0.0-1.0); Blood Urea Nitrogen 8 mg/dl (8-23); Calcium 8.3 mg/dl (8.6-10.4); Carbon Dioxide 30 mmol/L (22-30); Chloride 97 mmol/L (96-108); Glomerular Filtration Rate 109; Glucose 69 mg/dL (70-105); Lactate Dehydrogenase 170 U/L (94-250); Phosphorous 3.4 mg/dL (2.7-4.5); Triglycerides 139 mg/dl (<150)
[2019-12-10 06:56] LABS: Uric Acid 1.6 mg/dL (2.5-8.0)
[2019-12-10 07:15] LABS: Eosinophils % (Manual) 3 % (0-7); Lymphocytes % 23 % (15-49); Monocytes % (Manual) 14 % (1-12); Platelet Estimate NORMAL (NORMAL); RBC Morphology NORMAL (NORMAL); Reactive Lymphocytes 2 % (0-2); Segmented Neutrophils % 58 % (38-78)
[2019-12-10] MEDS: PANTOPRAZOLE 40 MG TABLET PO SCH (08:01)
[2019-12-10] MEDS: LEVOTHYROXINE 50 MCG TABLET PO SCH (08:01)
[2019-12-10] MEDS: INSULIN LISPRO 1 UNIT/0.01 ML UNIT SQ SCH ×4 (08:02→21:39)
[2019-12-10] MEDS ORDERED: SIMVASTATIN 40 MG TABLET PO SCH ×2 (09:00→21:00)
[2019-12-10] MEDS: INSULIN GLARGINE, HUMAN 1 UNIT/0.01 ML SQ SCH (09:08)
[2019-12-10] MEDS: HEPARIN 5,000 UNIT/ML VIAL SQ SCH ×2 (09:09→21:40)
[2019-12-10] MEDS: TAMSULOSIN 0.4 MG CAPSULE PO SCH (09:10)
[2019-12-10] MEDS: LISINOPRIL 10 MG TABLET PO SCH (09:10)
[2019-12-10] MEDS: SERTRALINE 50 MG TABLET PO SCH (09:10)
[2019-12-10] MEDS: FENOFIBRATE 43 MG CAPSULE PO SCH (09:10)
[2019-12-10] MEDS: MULTIVIT,THER IRON,CA,FA & MIN 1 TABLET PO SCH (09:10)
[2019-12-10] MEDS: sitaGLIPtin 100 MG TABLET PO SCH (09:10)
[2019-12-10] MEDS: DOCUSATE SODIUM 100 MG CAPSULE PO SCH ×2 (09:10→21:42)
[2019-12-10] MEDS: FOLIC ACID 1 MG TABLET PO SCH (09:10)
[2019-12-10] MEDS: MAGNESIUM SULFATE 2 GM/50 ML BAG IV PRN (09:37)
[2019-12-10] MEDS ORDERED: FLU VACC QS2019-20(6MOS UP)/PF 60 MCG/0.5 ML SYRINGE IM ONE (10:00)
[2019-12-10] MEDS ORDERED: PNEUMOCOCCAL 23-VAL P-SAC VAC 0.5 ML SYRINGE IM ONE (10:00)
--- NOTE | 2019-12-10 10:10 | Internal Med Progress Note ---
Medical - PN: Subj Patient information: Note initiated : 12/10/19 at 10:07 am Service Date, if different from initiated Date: [] Patient: Noah Sinclair 59 y/o M admitted on 12/08/19 for Nausea, Alcohol. Chief Complaint: [] Interval history: Mr. Sinclair is a 59 year old M with a known history of severe alcohol use disorder/who underwent alcohol rehab in the past but has relapsed since July. He presents to the ER with increasing weakness, nausea vomiting for the last 10 days. He has noticed increasing chest pounding palpitation over the last 3 days. He consumed 3 half-gallon and 1/5 of hard alcohol in the last 3 days. However due to profound nausea and symptoms he presents to the ER Initial work-up was consistent with atrial fibrillation with RVR. He was started on diltiazem drip. Potassium 2.7 was started on replacement. Received 3 L of crystalloids and subsequently hospitalist service was consulted. At the time evaluation patient is very anxious fidgety tachycardic. Denies chest pain but endorses shortness of breath and chest palpitations. Endorses nausea. Denies recent fever chills or changes in medications. He lives with his grandson at home. 12/09-patient shows severe alcohol withdrawal symptoms currently on CIWA protocol scores around 9. Continue supportive management. Improved nausea vomiting. Improved abdominal pain. A. fib converted to sinus. No other concerns per staff. Afebrile. Potassium improved to 2.9. 120 meq potassium replacement today. Sodium at 135. Bilirubin down to 1.1. Ultrasound liver hepatic steatosis. 12/10-patient clinically improved. Much improved psychomotor agitation/withdrawal symptoms. Tolerating diet. CIWA scores improving. No telemetry events. White count down to 6.5, potassium improved to 3.6, magnesium on replacement currently 1.1. Continue PT OT/nutrition support. Anticipate discharge in 24 hours. Abdominal pain nausea vomiting resolved. - Constitutional Vitals: Vital Signs Temp Pulse Resp BP Pulse Ox 97.4 F 84 20 128/78 94 12/10/19 08:00 12/10/19 04:31 12/10/19 08:00 12/10/19 08:00 12/10/19 08:00 Period Temp Pulse Resp BP Sys/Valenzuela Pulse Ox Last 24 Hr 97.4 F-97.7 F 74-116 - 80-146/39-111 87-100 Intake and Output 12/09/19 12/10/19 12/10/19 21:59 05:59 13:59 Intake Total 400 500 120 Output Total 550 1450 Balance -150 -950 120 Weight 200 lb 9.6 oz Intake & Output: Intake & Output 12/09/19 12/10/19 12/10/19 21:59 05:59 13:59 Intake Total 400 500 120 Output Total 550 1450 Balance -150 -950 120 Weight 200 lb 9.6 oz Intake: Oral 400 500 120 Output: Void Amount 550 1450 Other: Meal Lunch Breakfast Percent of Meal Consumed 100% 100% Urine Appearance Clear Urine Color Bright Yellow General appearance: no acute distress Exam: Alert oriented Nonlabored breathing no telemetry event Nondistended nontender abdomen Anxious and tremors but much improved since previous day Medical - PN: Obj Da - Labs CBC & Chem 7: 12/10/19 05:21 12/10/19 05:21 Labs: Abnormal Lab Results 12/10/19 12/10/19 12/09/19 05:21 05:21 05:45 WBC RBC 4.10 L Hgb 12.6 L Hct 38.2 L [place] % (Auto) Gran # [place] # (Auto) Monocytes % (Manual) 14 H Reactive Lymphocytes Sodium Potassium 2.9 L* Chloride 91 L Anion Gap 18.0 H Creatinine 0.6 L Glucose 69 L 131 H Uric Acid 1.6 L 2.1 L Calcium 8.3 L 7.6 L Magnesium 1.1 L 1.1 L Total Bilirubin 1.1 H GGT 265 H 276 H Total Protein 5.5 L 5.7 L Globulin 2.0 L 1.9 L Triglycerides 258 H Lipase Urine Glucose (UA) Urine Ketones 12/09/19 12/08/19 12/08/19 05:45 12:33 10:46 WBC RBC 4.38 L Hgb 13.5 L Hct 39.9 L [place] % (Auto) Gran # [place] # (Auto) Monocytes % (Manual) 14 H Reactive Lymphocytes 5 H Sodium 129 L Potassium 2.7 L* Chloride 79 L Anion Gap 27.0 H Creatinine Glucose 221 H Uric Acid Calcium Magnesium Total Bilirubin 1.6 H GGT Total Protein Globulin Triglycerides Lipase 75 H Urine Glucose (UA) >=500 A Urine Ketones 20 A 12/08/19 10:46 WBC 14.3 H RBC Hgb Hct [place] % (Auto) 13.9 H Gran # 9.73 H [place] # (Auto) 1.98 H Monocytes % (Manual) Reactive Lymphocytes Sodium Potassium Chloride Anion Gap Creatinine Glucose Uric Acid Calcium Magnesium Total Bilirubin GGT Total Protein Globulin Triglycerides Lipase Urine Glucose (UA) Urine Ketones Meds: Medications Acetaminophen (Tylenol) 650 mg PO Q4-6HP PRN; Protocol PRN Reason: Per Pain Protocol/Fever > 101 Hydrocodone Bitart/Acetaminophen ([place] 10/325mg) 1 tab PO Q6HP PRN; Protocol PRN Reason: pain Last Admin: 12/09/19 17:04 Dose: 1 tab Documented by: Bisacodyl (Dulcolax) 10 mg VT Q2-3DAYS PRN PRN Reason: Constipation Dextrose (Dextrose 50%) 0 ml IV UD PRN PRN Reason: Hypoglycemia Diagnostic Test (Pha) (Accu-Chek) 1 each FS ACHS [facility] Last Admin: 12/10/19 08:01 Dose: 1 each Documented by: Docusate Sodium (Colace) 100 mg PO BID [facility] Last Admin: 12/10/19 09:10 Dose: 100 mg Documented by: Fenofibrate (Antara) 129 mg PO QDAY [facility] Last Admin: 12/10/19 09:10 Dose: 129 mg Documented by: Folic Acid (Folic Acid) 1 mg PO DAILY [facility] Last Admin: 12/10/19 09:10 Dose: 1 mg Documented by: Gabapentin (Neurontin) 200 mg PO Q8 [facility] Last Admin: 12/10/19 05:40 Dose: 200 mg Documented by: Glucose (Insta-Glucose) 15 gm PO PRN PRN PRN Reason: Hypoglycemia Heparin Sodium (Porcine) (Heparin) 5,000 unit SQ Q12 [facility] Last Admin: 12/10/19 09:09 Dose: 5,000 unit Documented by: Diltiazem HCl 125 mg/ Dextrose 125 mls @ 5 mls/hr IV Q12HP PRN; Protocol PRN Reason: Tachyarrhythmias Potassium Chloride 40 meq/ (Dextrose) 520 mls @ 130 mls/hr IV UD PRN PRN Reason: K+ = or < 3.5 Magnesium Sulfate (Magnesium Sulfate) 2 gm in 50 mls @ 50 mls/hr IV UD PRN PRN Reason: MG = or < 1.7 Last Admin: 12/10/19 09:37 Dose: 50 mls/hr Documented by: Insulin Glargine (Lantus) 50 unit SQ DAILY [facility] Last Admin: 12/10/19 09:08 Dose: 50 units Documented by: Insulin Human Lispro (Humalog) 0 unit SQ ACHS [facility]; Protocol Last Admin: 12/10/19 08:02 Dose: Not Given Documented by: Insulin Human Lispro (Humalog) 20 unit SQ BIDP PRN PRN Reason: blood sugar Ipratropium [place] (Atrovent 0.03% Nasal [place]) 2 spray DAVE TIDP PRN PRN Reason: Allergy Symptoms Iron Carb/Multivit/[place]/Folic Acid (Multivitamin W/Minerals) 1 tab PO DAILY [facility] Last Admin: 12/10/19 09:10 Dose: 1 tab Documented by: [facility]othy[facility]ine [facility]) [facility] Last Admin: 12/10/19 08:01 Dose: 50 mcg Documented by: Lisinopril (Zestril) 10 mg PO DAILY [facility] Last Admin: 12/10/19 09:10 Dose: 10 mg Documented by: Lorazepam (Ativan) 2 mg IV Q1HP PRN; Protocol PRN Reason: ANXIETY/SEDATION Last Admin: 12/10/19 09:38 Dose: 1 mg Documented by: Melatonin (Melatonin 3mg Tablet) 3 mg PO HSP PRN PRN Reason: Insomnia Last Admin: 12/09/19 21:41 Dose: 3 mg Documented by: Metoprolol Tartrate (Lopressor) 5 mg IV Q5M PRN PRN Reason: Heart Rate > 140 bpm Omeprazole (Prilosec) 40 mg PO BIDP PRN PRN Reason: GERD Last Admin: 12/09/19 17:04 Dose: 40 mg Documented by: Ondansetron HCl (Zofran Odt) 4 mg SL Q4-6HP PRN; Protocol PRN Reason: Nausea And Vomiting Last Admin: 12/09/19 05:37 Dose: 4 mg Documented by: Ondansetron HCl (Zofran) 4 mg IV Q4-6HP PRN; Protocol PRN Reason: Nausea And Vomiting Pantoprazole Sodium (Protonix) 40 mg PO QAMAC [facility] Last Admin: 12/10/19 08:01 Dose: 40 mg Documented by: Apremilast [Otezla] (30 Mg Tab) 1 dose PO BID [facility] Last Admin: 12/10/19 09:11 Dose: Not Given Documented by: Canagliflozin [ (Invokana] 100 Mg Tab) 1 dose PO DAILY [facility] Last Admin: 12/10/19 09:11 Dose: Not Given Documented by: Polyethylene Glycol (Miralax) 17 gm PO DAILYP PRN PRN Reason: Constipation Potassium Chloride (Klor-Con) 40 meq PO DAILYP PRN PRN Reason: K+ < 3.5 Last Admin: 12/09/19 17:04 Dose: 40 meq Documented by: Senna/Docusate Sodium (Senna Plus Tablet) 1 tab PO [facility] Last Admin: 12/09/19 21:36 Dose: Not Given Documented by: Sertraline HCl (Zoloft) 25 mg PO QAM [facility] Last Admin: 12/10/19 09:10 Dose: 25 mg Documented by: Simvastatin (Zocor) 40 mg PO [facility] Sitagliptin Phosphate (Januvia) 100 mg PO DAILY [facility] Last Admin: 12/10/19 09:10 Dose: 100 mg Documented by: Sodium Chloride (Saline Flush) 10 ml IV Q8 [facility] Last Admin: 12/10/19 05:41 Dose: 10 ml Documented by: Tamsulosin HCl (Flomax) 0.4 mg PO DAILY [facility] Last Admin: 12/10/19 09:10 Dose: 0.4 mg Documented by: Tolterodine Tartrate (Detrol La) 4 mg PO [facility] Last Admin: 12/09/19 21:41 Dose: 4 mg Documented by: Medical - PN: A/P - Time Spent With Patient Total time spent is greater than 50% in coordination of care (as documented) at patient's floor/unit and/or counseling patient: 25 - 35 minutes (1) Atrial fibrillation with RVR Status: Acute Assessment and plan: * Severe alcohol use disorder, with active alcohol withdrawal. Clinically improved on benzodiazepine protocol. Weaning benzodiazepine. * Low magnesium and potassium on aggressive replacement. * Afib RVR-converted to sinus on diltiazem. Secondary to alcoholism. Echocardiogram unremarkable with normal EF * Volume depletion secondary to vomiting-resolved with antiemetics/crystalloids * Elevated bilirubin likely secondary to alcoholic hepatitis/steatosis. Abdominal ultrasound unremarkable for biliary pathology * Hypovolemic hyponatremia secondary to alcoholism/nausea vomiting electrolyte loss. Resolved, sodium 139 * History of DM type II continue basal prandial insulin/CC diet * BPH on home dose tamsulosin * Hyperlipidemia continue statin * Anxiety disorder continue sertraline * History of hypertension -CARMEN inhibitor on hold * Hypothyroidism continue thyroxine * Full code * Prophylaxis heparin Plan * Wean benzodiazepine * Continue PT OT/nutrition support * Aggressive electrolyte replacement during potassium and magnesium * Pre-existing medical condition management on home meds * Discharge planning likely in 24 hours Current Visit: Yes Medical - PN: Qual - VTE Deep Vein Thrombosis/Pulmonary Embolism Present on Admission: No
[2019-12-10] MEDS: HYDROcodone/APAP 10/325MG TABLET PO PRN (21:38)
[2019-12-10] MEDS: SENNOSIDES/DOCUSATE SODIUM 1 TAB TABLET PO SCH (21:39)
[2019-12-10] MEDS: MELATONIN 3 MG TABLET PO PRN (21:39)
[2019-12-10] MEDS: TOLTERODINE 2 MG CAP.XL.24H PO SCH (21:42)
[2019-12-11] MEDS: LORazepam 2 MG/ML VIAL IV PRN ×2 (05:00→10:18)
[2019-12-11] MEDS: 0.9 % SODIUM CHLORIDE 10 ML SYRINGE IV SCH (05:59)
[2019-12-11] MEDS: GABAPENTIN 100 MG CAPSULE PO SCH ×2 (05:59→09:58)
[2019-12-11 06:48] LABS: Hematocrit 38.1 % (40.1-51.0); Hemoglobin 12.5 g/dL (13.7-17.5); Mean Cell Volume 94.1 fL (80.0-100.0); Mean Corpuscular HGB Conc 32.8 g/dL (31.0-36.0); Mean Platelet Volume 9.9 fL (7.4-10.4); Platelet Count 192 K/mcL (140-440); RBC 4.05 M/mcL (4.63-6.08); Red Cell Distribution Width 13.6 % (11.5-14.5); WBC 5.7 K/mcL (4.50-11.00)
[2019-12-11 07:15] LABS: ALT/SGPT 16 U/l (0-40); AST/SGOT 24 U/l (0-37); Albumin 3.4 gm/dL (3.2-5.2); Albumin/Globulin Ratio 1.7 (1.0-2.3); Alkaline Phosphatase 62 U/L (39-117); Bilirubin,Total 0.8 mg/dL (0.0-1.0); Blood Urea Nitrogen 8 mg/dl (8-23); Calcium 9.1 mg/dl (8.6-10.4); Carbon Dioxide 29 mmol/L (22-30); Chloride 96 mmol/L (96-108); Glomerular Filtration Rate 109; Glucose 132 mg/dL (70-105); Lactate Dehydrogenase 140 U/L (94-250); Phosphorous 4.2 mg/dL (2.7-4.5); Triglycerides 130 mg/dl (<150)
[2019-12-11 07:18] LABS: Bilirubin,Direct < 0.2 mg/dL (0.0-0.3); Uric Acid 1.2 mg/dL (2.5-8.0)
[2019-12-11 07:35] LABS: Basophils % (Manual) 1 % (0-2); Eosinophils % (Manual) 5 % (0-7); Lymphocytes % 40 % (15-49); Monocytes % (Manual) 11 % (1-12); Platelet Estimate NORMAL (NORMAL); RBC Morphology NORMAL (NORMAL); Reactive Lymphocytes 1 % (0-2); Segmented Neutrophils % 42 % (38-78)
[2019-12-11] MEDS: INSULIN GLARGINE, HUMAN 1 UNIT/0.01 ML SQ SCH (08:28)
[2019-12-11] MEDS: INSULIN LISPRO 1 UNIT/0.01 ML UNIT SQ SCH ×2 (08:28→12:36)
[2019-12-11] MEDS: PANTOPRAZOLE 40 MG TABLET PO SCH (08:36)
[2019-12-11] MEDS: LEVOTHYROXINE 50 MCG TABLET PO SCH (08:36)
[2019-12-11] MEDS ORDERED: PNEUMOCOCCAL 23-VAL P-SAC VAC 0.5 ML SYRINGE IM ONE (09:00)
[2019-12-11] MEDS ORDERED: FLU VACC QS2019-20(6MOS UP)/PF 60 MCG/0.5 ML SYRINGE IM ONE (09:00)
[2019-12-11] MEDS: HEPARIN 5,000 UNIT/ML VIAL SQ SCH (09:53)
[2019-12-11] MEDS: MAGNESIUM SULFATE 2 GM/50 ML BAG IV PRN (09:53)
[2019-12-11] MEDS: HYDROcodone/APAP 10/325MG TABLET PO PRN (09:53)
[2019-12-11] MEDS: DOCUSATE SODIUM 100 MG CAPSULE PO SCH (09:56)
[2019-12-11] MEDS: LISINOPRIL 10 MG TABLET PO SCH (09:56)
[2019-12-11] MEDS: TAMSULOSIN 0.4 MG CAPSULE PO SCH (09:56)
[2019-12-11] MEDS: FOLIC ACID 1 MG TABLET PO SCH (09:56)
[2019-12-11] MEDS: POTASSIUM CHLORIDE 20 MEQ PACKET PO PRN (09:56)
[2019-12-11] MEDS: MULTIVIT,THER IRON,CA,FA & MIN 1 TABLET PO SCH (09:56)
[2019-12-11] MEDS: SERTRALINE 50 MG TABLET PO SCH (09:57)
[2019-12-11] MEDS: FENOFIBRATE 43 MG CAPSULE PO SCH (10:19)
[2019-12-11] MEDS: sitaGLIPtin 100 MG TABLET PO SCH (10:20)
--- NOTE | 2019-12-11 11:39 | Discharge Summary ---
Medical - DS: Prov Patient information: Note initiated : 12/11/19 at 11:37 am Service Date, if different from initiated Date: [] Patient: Noah Sinclair 59 y/o M admitted on 12/08/19 for Nausea, Alcohol. Chief Complaint: [] Date of admission: 12/08/19 17:00 Discharge date: 12/11/19 Primary care physician: Pete Green Consults: 12/08/19 Consult to Physician [CONS] Stat Comment: Consulting Provider: Jose Nelson Reason For Exam: Physician to Consult Medical - DS: Meds - Discharge Medications Prescriptions: chlordiazePOXIDE [Librium] 25 mg PO Q8HP PRN #20 cap PRN Reason: Anxiety Prescription Printed HYDROcodone/APAP 5/325MG [[place] 5-325Mg] 1 tab PO Q6HP PRN #20 tab PRN Reason: Pain Prescription Printed Active and Home Medications: Home Medications Fenofibrate Nanocrystallized [Tricor] 145 mg PO QDAY 05/03/16 [History Confirmed 12/08/19 Last Taken 06/24/17] Folic Acid 1 mg PO QDAY 05/03/16 [History Confirmed 12/08/19 Last Taken 06/24/17] Insulin Glargine, Human [Lantus] 50 unit SQ BID 05/03/16 [History Confirmed 12/08/19 Last Taken 06/24/17] Simvastatin [Zocor] 10 mg PO HS 05/03/16 [History Confirmed 12/08/19 Last Taken 06/24/17] Tolterodine Tartrate [Detrol LA] 4 mg PO HS 05/03/16 [History Confirmed 12/08/19 Last Taken 06/24/17] metFORMIN [Glucophage] 1,000 mg PO BIDCC 05/03/16 [History Confirmed 12/08/19 Last Taken 06/24/17] Ipratropium 0.03% Nasal [place] [Atrovent 0.03% Nasal [place]] 2 spray DAVE TIDP PRN 08/08/16 [History Confirmed 12/08/19 Last Taken 06/24/17] Lisinopril [Zestril] 10 mg PO DAILY 08/08/16 [History Confirmed 12/08/19 Last Taken 06/24/17] Tamsulosin [Flomax] 0.4 mg PO DAILY 08/08/16 [History Confirmed 12/08/19 Last Taken 06/24/17] levothyroxine 50 mcg tablet 50 mcg PO DAILY #30 tab 09/12/19 [Rx Confirmed 12/08/19 Last Taken Unknown] clobetasol 0.05 % topical ointment See Rx Instructions TOPICAL BID #15 g 09/15/19 [Rx Confirmed 12/08/19 Last Taken Unknown] blood sugar diagnostic See Rx Instructions .ROUTE .MEDSUPPLY #100 each 09/16/19 [Rx Confirmed 12/08/19 Last Taken Unknown] ergocalciferol (vitamin D2) 1,250 mcg (50,000 unit) capsule 50,000 unit PO QWEEK #4 cap 09/29/19 [Rx Confirmed 12/08/19 Last Taken Unknown] insulin aspart U-100 100 unit/mL subcutaneous solution 20 unit SUB-Q BID PRN ml 10/06/19 [History Confirmed 12/08/19 Last Taken Unknown] sertraline 25 mg tablet 25 mg PO QAM tab 10/06/19 [History Confirmed 12/08/19 Last Taken Unknown] sildenafil 100 mg tablet 100 mg PO ONCE tab 10/06/19 [History Confirmed 12/08/19 Last Taken Unknown] simvastatin 40 mg tablet 40 mg PO QDAY tab 10/06/19 [History Confirmed 12/08/19 Last Taken Unknown] canagliflozin 100 mg tablet 100 mg PO DAILY 10/07/19 [History Confirmed 12/08/19 Last Taken Unknown] apremilast 30 mg tablet 30 mg PO BID #60 tab 10/28/19 [Rx Confirmed 12/08/19 Last Taken Unknown] hydrocodone 10 mg-acetaminophen 325 mg tablet 1 tab PO Q6H PRN #120 tab 11/02/19 [Rx Confirmed 12/08/19 Last Taken Unknown] lorazepam 1 mg tablet 1 mg PO .COMPLEX #56 tab 11/02/19 [Rx Confirmed 12/08/19 Last Taken Unknown] omeprazole 40 mg capsule,delayed release 40 mg PO BID PRN #60 cap 11/02/19 [Rx Confirmed 12/08/19 Last Taken Unknown] Levothyroxine Sodium [Synthroid] 50 mcg PO DAILY 12/09/19 [History Confirmed 12/09/19 Last Taken Unknown] HYDROcodone/APAP 5/325MG [[place] 5-325Mg] 1 tab PO Q6HP PRN #20 tab 12/11/19 [Rx Last Taken Unknown] chlordiazePOXIDE [Librium] 25 mg PO Q8HP PRN #20 cap 12/11/19 [Rx Last Taken Unknown] Medical - DS: Hosp Hospital Course: Discharge diagnosis * Severe alcohol use disorder, with active alcohol withdrawal. Clinically resolved on benzodiazepine protocol. Continue Librium as needed for withdrawal symptoms as outpatient and follow-up with behavioral health clinic * Low magnesium and potassium resolved with aggressive replacement * Afib RVR-converted to sinus. Echocardiogram unremarkable with normal EF * Volume depletion secondary to vomiting-resolved with antiemetics/crystalloids * Elevated bilirubin likely secondary to alcoholic hepatitis/steatosis. Abdominal ultrasound unremarkable for biliary pathology * Hypovolemic hyponatremia secondary to alcoholism/nausea vomiting electrolyte loss. Resolved, sodium 139 * History of DM type II continue basal prandial insulin/CC diet * BPH on home dose tamsulosin * Hyperlipidemia continue statin * Anxiety disorder continue sertraline * History of hypertension -CARMEN inhibitor on hold * Hypothyroidism continue thyroxine Brief hospital course Mr. Sinclair is a 59 year old M with a known history of severe alcohol use disorder/who underwent alcohol rehab in the past but has relapsed since July. He presents to the ER with increasing weakness, nausea vomiting for the last 10 days. He has noticed increasing chest pounding palpitation over the last 3 days. He consumed 3 half-gallon and 1/5 of hard alcohol in the last 3 days. However due to profound nausea and symptoms he presents to the ER Initial work-up was consistent with atrial fibrillation with RVR. He was started on diltiazem drip. Potassium 2.7 was started on replacement. Received 3 L of crystalloids and subsequently hospitalist service was consulted. At the time evaluation patient is very anxious fidgety tachycardic. Denies chest pain but endorses shortness of breath and chest palpitations. Endorses nausea. Denies recent fever chills or changes in medications. He lives with his grandson at home. 12/09-patient shows severe alcohol withdrawal symptoms currently on CIWA protocol scores around 9. Continue supportive management. Improved nausea vomiting. Improved abdominal pain. A. fib converted to sinus. No other concerns per staff. Afebrile. Potassium improved to 2.9. 120 meq potassium replacement today. Sodium at 135. Bilirubin down to 1.1. Ultrasound liver hepatic steatosis. 12/10-patient clinically improved. Much improved psychomotor agitation/withdrawal symptoms. Tolerating diet. CIWA scores improving. No telemetry events. White count down to 6.5, potassium improved to 3.6, magnesium on replacement currently 1.1. Continue PT OT/nutrition support. Anticipate discharge in 24 hours. Abdominal pain nausea vomiting resolved. 12/11-patient doing well. No overnight events. No concerns per staff. No fever chills nausea vomiting. No abdominal pain agitation or tremors. Discharging advised to continue follow-up primary care physician and outpatient behavioral health clinic at [facility] Discharge diagnosis: . - Time Spent with Patient Total time spent providing and/or coordinating discharge services: Greater than 30 minutes Medical - DS: Exam - Constitutional Vitals: Vital Signs Temp Pulse Resp BP Pulse Ox 12/11/19 08:01 98.0 F 122/76 95 12/11/19 07:01 135/76 95 12/11/19 06:01 99/55 95 12/11/19 05:01 111/73 95 12/11/19 03:01 76 83/54 97 12/11/19 02:01 86/45 12/11/19 02:00 92 12/11/19 01:01 74/43 12/11/19 00:01 98.2 F 112/70 12/10/19 23:01 103/72 12/10/19 22:01 105/75 12/10/19 21:01 97 H 110/70 96 12/10/19 20:05 101 H 99 12/10/19 20:01 47 L 91/77 91 12/10/19 20:00 95 12/10/19 19:01 95/61 12/10/19 18:01 103 H 106/66 91 12/10/19 17:46 85/65 12/10/19 17:37 110/78 12/10/19 17:16 101 H 107/77 97 12/10/19 17:06 104 H 158/116 91 12/10/19 16:46 118/87 12/10/19 16:31 129/79 12/10/19 16:16 99 H 112/76 96 12/10/19 16:01 99 H 105/68 97 12/10/19 15:46 115/73 12/10/19 15:31 120/68 12/10/19 15:16 114/65 12/10/19 15:01 102 H 95/61 87 L 12/10/19 14:48 110 H 92/61 93 12/10/19 14:31 132 H 101/78 93 12/10/19 14:25 88 92/66 93 12/10/19 14:19 101 H 92 12/10/19 14:00 20 99 12/10/19 13:19 102 H 119/79 89 L 12/10/19 12:31 94 H 111/74 100 12/10/19 12:16 103 H 112/73 63 L 12/10/19 12:01 97.5 F 20 119/83 96 Intake and Output 12/10/19 12/11/19 12/11/19 21:59 05:59 13:59 Intake Total 340 360 Output Total 1100 250 575 Balance -1100 90 -215 Intake: Oral 340 360 Output: Urine Catheter Amount 450 Void Amount 650 250 575 Other: Meal Breakfast Percent of Meal Consumed 100% Urine Appearance Clear Clear Urine Color Bright Yellow Dark Yellow Urine Odor Normal Normal Weight 202 lb 9.6 oz Medical - DS: Data Labs on day of discharge: Labs from last 24 hours 12/11/19 12/11/19 04:38 04:38 WBC 5.7 RBC 4.05 L Hgb 12.5 L Hct 38.1 L MCV 94.1 MCH 30.9 MCHC 32.8 RDW 13.6 Plt Count 192 MPV 9.9 Total Counted 100 Seg Neutrophils % 42 Band Neutrophils % Not Reportable Lymphocytes % 40 Monocytes % (Manual) 11 Eosinophils % (Manual) 5 Basophils % (Manual) 1 Reactive Lymphocytes 1 Platelet Estimate Normal RBC Morphology Normal Sodium 136 Potassium 3.4 Chloride 96 Carbon Dioxide 29 Anion Gap 11.0 BUN 8 Creatinine 0.6 L GFR Calculation 109 Glucose 132 H Uric Acid 1.2 L Calcium 9.1 Phosphorus 4.2 Magnesium 1.3 L Total Bilirubin 0.8 Direct Bilirubin < 0.2 GGT 246 H AST 24 ALT 16 Alkaline Phosphatase 62 Lactate Dehydrogenase 140 Total Protein 5.4 L Albumin 3.4 Globulin 2.0 L Albumin/Globulin Ratio 1.7 Triglycerides 130 Medical - DS: A/P - Patient/Caregiver Discharge Instructions Activity: increase activity as tolerated Diet: Consistent Carbohydrate Additional Instructions: Follow-up with behavioral health clinic in 1 week Follow-up PCP in 5 7 days Refrain from alcohol use Prescriptions: chlordiazePOXIDE [Librium] 25 mg PO Q8HP PRN #20 cap PRN Reason: Anxiety Prescription Printed HYDROcodone/APAP 5/325MG [[place] 5-325Mg] 1 tab PO Q6HP PRN #20 tab PRN Reason: Pain Prescription Printed - Problem Maintenance (1) Atrial fibrillation with RVR Status: Acute - Follow up Plan Follow up with: Pete Green MD [Primary Care Provider] - Disposition: Home, Self-Care Care Plan Goals: This discharge packet is provided to you to help keep you informed about your care. We want to ensure you get everything you need when you go home. You will also be receiving a call from us in a few days to follow up with you and see how you are doing since your discharge. This gives us a chance to listen to any concerns you maybe experiencing since you were discharged or any additional needs you may have, as well as providing us feedback on your care experience. We strive to always provide excellent care and thank you for your feedback and for choosing [facility]. Prognosis: Good Rehab Potential: Fair I certify that the patient requires SNF services: No Overall status at discharge: patient is progressing back to baseline Medical - DS: Qual - VTE Deep Vein Thrombosis/Pulmonary Embolism Present on Admission: No
== END 2019-12-11 14:00 | disposition home or self-care (01) | DRG 897 ==
LOC: ED 10:27 → ICU 17:00
PROVIDERS: ADMIT Internal Medicine; ATTEND Internal Medicine